=== PATIENT | male | born 1970 | race Caucasian/White ===

== ENCOUNTER 2019-01-02 09:31 | Outpatient (REF) | payer BC, SELFPAY ==
[2019-01-02 12:27] LABS: Anion Gap 11.3 mmol/L (3-11); BUN 12 mg/dL (7-18); CO2 26.7 mmol/L (21.0-32.0); CREATININE 0.99 mg/dL (0.70-1.30); Calcium 9.4 mg/dL (8.5-10.1); Chloride 104 mmol/L (98-107); Cholesterol 255 mg/dL (50-200); Glucose 89 mg/dL (70-100); HDL Cholesterol 89 mg/dL (40-60); LDL CHOLESTEROL 137 mg/dL (<100); Potassium 4.2 mmol/L (3.5-5.1); Sodium 142 mmol/L (136-145); Triglyceride 78 mg/dL (30-150)
== END 2019-01-02 09:51 ==
LOC: NCHCN 09:31
PROVIDERS: PCP Family Medicine; Visit Provider Family Medicine
DX: Z00.00 Encounter for general adult medical examination without abnormal findings (principal); Z13.220 Encounter for screening for lipoid disorders; Z13.228 Encounter for screening for other metabolic disorders
CPT/HCPCS: 80048; 80061; 83721

== ENCOUNTER 2020-04-20 10:01 | Outpatient (REF) | payer OTHER, SELFPAY ==
[2020-04-20 20:10] LABS: HCT 44.8 % (40.0-50.0); HGB 15.3 g/dL (13.5-17.5); MCH 31.5 pg (27.0-33.0); MCHC 34.2 % (32.0-36.0); MCV 92.4 fL (80-95); MPV 10.5 fL (8.0-11.0); Platelet Count 284 10^3/uL (130-400); RBC 4.85 10^6/uL (4.36-5.78); RDW 12.5 % (11.8-14.1); RDW-SD 42.6 fL; WBC 5.77 10^3/uL (4.4-10.8)
[2020-04-20 20:43] LABS: ALT 33 U/L (16-63); AST 19 U/L (15-37); Albumin 4.1 g/dL (3.4-5.0); Alkaline Phosphatase 30 U/L (46-116); Anion Gap 11.7 mmol/L (3-11); BUN 7 mg/dL (7-18); Bilirubin, Total 0.6 mg/dL (0.2-1.0); CO2 25.3 mmol/L (21.0-32.0); CREATININE 0.81 mg/dL (0.70-1.30); Calcium 9.8 mg/dL (8.5-10.1); Chloride 103 mmol/L (98-107); Glucose 99 mg/dL (74-106); Potassium 4.2 mmol/L (3.5-5.1); Sodium 140 mmol/L (136-145); Total Protein 7.2 g/dL (6.4-8.2)
== END 2020-04-20 10:21 ==
LOC: NCHCN 10:01
PROVIDERS: PCP Family Medicine; Visit Provider Family Medicine
DX: I10 Essential (primary) hypertension (principal); F41.1 Generalized anxiety disorder; K21.9 Gastro-esophageal reflux disease without esophagitis
CPT/HCPCS: 80053; 85027

== ENCOUNTER 2020-08-29 03:13 | Outpatient (CLI) | payer OTHER, SELFPAY ==
[2020-08-30 17:32] LABS: COVID-19 RT-PCR UVMMC Result Negative (Negative)
== END 2020-08-29 03:33 ==
PROVIDERS: PCP Family Medicine; Visit Provider Surgery
DX: Z11.59 Encounter for screening for other viral diseases (principal); Z01.818 Encounter for other preprocedural examination
CPT/HCPCS: U0003

== ENCOUNTER 2020-09-01 08:05 | Day surgery (SDC) | payer OTHER, SELFPAY ==
[2020-09-01 08:22] VITALS: BP 139/90; PULSE 71; RESP 16; TEMP 36.6; O2SAT 97
[2020-09-01] MEDS: Lactated Ringers 1,000 ML 80 ML IV (08:55)
--- NOTE | 2020-09-01 10:00 | BOWEL_PTH ---
PATIENT: Hai Chiu LOC: [facility] U#:[id number] AGE/SX: 49/M ROOM: RE09/01/[address]: Flora Martinez : 1970 BED: DIS: 09/01/2020 SPEC #: [id number] RECD: 09/01/20 12:57 STATUS: BRENDA REQ #: [id number] EUGENE: 09/01/20 10:[address]: Flora Martinez DEPT: Surgical Specimen RECD BY: Keila Greer ENTERED: 09/01/20 12:58 SP TYPE: Bowel OTHR DR: Deepthi Jimenez Tissues: 1 - BIOPSY BOWEL 2 - BIOPSY BOWEL 3 - BIOPSY BOWEL Procedures: GROSS AND MICRO LEVEL 4 Comments: [id number]
--- NOTE | 2020-09-01 10:44 | W.PM.DSUDISC ---
Discharge Plan Disposition Patient Disposition: HOME Condition: Good Discharge Details Reason For Visit: colon scope Attending Provider: Flora Martinez Primary Care Provider: Deepthi Jimenez Home Meds and New Rx's Prescriptions: Discontinued bisacodyl [Dulcolax (bisacodyl)] 5 mg tablet,delayed release (DR/EC) 5 mg PO ONCE Qty: 4 RF: 0 polyethylene glycol 3350 17 gram/dose powder 238 g PO ONCE Qty: 238 RF: 0 No Action aspirin 81 MG tablet,delayed release (DR/EC) 81 mg PO DAILY RF: 0 citalopram 20 mg tablet 40 mg PO DAILY RF: 0 dextroamphetamine-amphetamine [Adderall XR] 30 mg capsule,extended release 24hr 30 mg PO DAILY RF: 0 amlodipine 5 mg tablet 5 mg PO DAILY RF: 0 albuterol sulfate [ProAir HFA] 90 mcg/actuation HFA aerosol inhaler 2 puff inhalation Q6H PRNRF: 0 omeprazole 40 mg capsule,delayed release(DR/EC) 40 mg PO DAILY RF: 0 Advair HFA 60 PUFF HFA aerosol inhaler 2 puff Inhalation BID RF: 0 ProAir RespiClick 90 MCG aerosol powdr breath activated 2 puff Inhalation PRN PRNRF: 0 Discharge Instructions Additional Instructions: Findings: x3 small polyps We will send a letter in 2 to 3 weeks time as to what when to repeat the colonoscopy. Most likely will be 3 to 5 years. Few small scattered diverticula. Follow a high-fiber diet. Please call if you develop: fevers >101.5 Nausea or Vomiting Abdominal pain that is not transient DAY SURGERY UNIT POST COLONOSCOPY INSTRUCTIONS 1. Because there will be medication in your system for the next 24 hours, you may feel a little sleepy. Your coordination will be affected. Therefore: a. Do not drive or operate dangerous equipment for 24 hours. b. Do not drink alcohol beverages for 24 hours (not even beer). c. Plan to go home and rest for the day. 2. Generally there are no restrictions on your activity after a day or so has gone by, but you may feel a bit fatigued for a few days. 3 After you arrive home you may have a light meal and return to a normal diet as you can tolerate it without feeling sick to your stomach. 4. After surgery, you may feel pain or discomfort. This should be only transient, but if it persists please contact your doctor. 5. If there are any questions regarding the findings of your procedure, please feel free to contact your doctor. 6. If you are unable to contact your doctor with a problem, contact the hospital at [phone]. 7. Continue all your regular medications unless directed otherwise. I understand the above instructions and have no questions. Signature of Patient or Responsible Adult Escort Date/Time Name of Responsible Adult Escort Signature of Nurse Date/Time DIVERTICULAR DISEASE OVERVIEW ? A diverticulum is a pouch-like structure that can form through points of weakness in the muscular wall of the colon (ie, at points where blood vessels pass through the wall). Diverticulosis affects men and women equally. The risk of diverticular disease increases with age. It occurs throughout the world but is seen more commonly in developed countries. WHAT IS DIVERTICULAR DISEASE? Diverticulosis ? Diverticulosis merely describes the presence of diverticula. Diverticulosis is often found during a test done for other reasons, such as flexible sigmoidoscopy, colonoscopy, or barium enema. Most people with diverticulosis have no symptoms and will remain symptom free for the rest of their lives. A person with diverticulosis may have diverticulitis, or diverticular bleeding. Diverticulitis ? Inflammation of a diverticulum (diverticulitis) occurs when there is thinning and breakdown of the diverticular wall. This may be caused by increased pressure within the colon or by hardened particles of stool, which can become lodged within the diverticulum. The symptoms of diverticulitis depend upon the degree of inflammation present. The most common symptom is pain in the left lower abdomen. Other symptoms can include nausea and vomiting, constipation, diarrhea, and urinary symptoms such as pain or burning when urinating or the frequent need to urinate. Diverticulitis is divided into simple and complicated forms. ?Simple diverticulitis, which accounts for 75 percent of cases, is not associated with complications and typically responds to medical treatment without surgery. ?Complicated diverticulitis occurs in 25 percent of cases and usually requires surgery. Complications associated with diverticulitis can include the following: ?Abscess ? a localized collection of pus ?Fistula ? an abnormal tract between two areas that are not normally connected (eg, bowel and bladder) ?Obstruction ? a blockage of the colon ?Peritonitis ? infection involving the space around the abdominal organ ?Sepsis ? overwhelming body-wide infection that can lead to failure of multiple organs Diverticular bleeding ? Diverticular bleeding occurs when a small artery located within a diverticulum is eroded and bleeds into the colon. Diverticular bleeding usually causes painless bleeding from the rectum. In approximately 50 percent of cases, the person will see maroon or bright red blood with bowel movements. Is bleeding with a bowel movement normal? ? It is not normal to see blood in a bowel movement; this can be a sign of several conditions, most of which are not serious (eg, hemorrhoids) but some of which are serious and require immediate treatment. Anyone who sees blood after a bowel movement should consult with their healthcare provider to determine if further testing or evaluation is needed. DIVERTICULOSIS AND DIVERTICULITIS DIAGNOSIS ? Diverticulosis is often found during tests performed for other reasons. ?Barium enema ? This is an x-ray study that uses barium in an enema to view the outline of the lower intestinal tract. This is an older test and has been largely replaced by computed tomography (CT) scan. ?Flexible sigmoidoscopy ? This is an examination of the inside of the sigmoid colon with a thin, flexible tube that contains a camera. ?Colonoscopy ? This is an examination of the inside of the entire colon. ?CT scan ? A CT scan is often used to diagnose diverticulitis and its complications. If diverticulitis (not just diverticulosis) is suspected, the above three tests should not be used because of the risk of perforation. TREATMENT Diverticulosis ? People with diverticulosis who do not have symptoms do not require treatment. However, most clinicians recommend increasing fiber in the diet, which can help to bulk the stools and possibly prevent the development of new diverticula, diverticulitis, or diverticular bleeding. Fiber is not proven to prevent these conditions in all patients but may help to control recurrent episodes in some. Increase fiber ? Fruits and vegetables are a good source of fiber. Fiber content of packaged foods can be calculated by reading the nutrition label. Seeds and nuts ? Patients with diverticular disease have historically been advised to avoid whole pieces of fiber (such as seeds, corn, and nuts) because of concern that these foods could cause an episode of diverticulitis. However, this belief is completely unproven. We do not suggest that patients with diverticulosis avoid seeds, corn, or nuts. Diverticulitis ? Treatment of diverticulitis depends upon how severe your symptoms are. Home treatment ? If you have mild symptoms of diverticulitis (mild abdominal pain, usually left lower abdomen), you can be treated at home with a clear liquid diet and oral antibiotics. However, if you develop one or more of the following signs or symptoms, you should seek immediate medical attention: ?Temperature >100.1?F (38?C) ?Worsening or severe abdominal pain ?An inability to tolerate fluids Hospital treatment ? If you have moderate to severe symptoms, you may be hospitalized for treatment. During this time, you are not allowed to eat or drink; antibiotics and fluids are given into a vein. If you develop an abscess of the colon, you may require drainage of the abscess (usually performed by placing a drainage tube across the abdominal wall) or by surgically opening the affected area. Surgery ? If you develop a generalized infection in the abdomen (peritonitis), you will usually require an emergency operation. A two-part operation may be necessary in some cases. ?The first operation involves removal of the diseased colon and creation of a colostomy. A colostomy is an opening between the colon and the skin, where a bag is attached to collect waste from the intestine. The lower end of the colon is temporarily sewed closed to allow it to heal. ?Approximately three to six months later, a second operation is performed to reconnect the two parts of the colon and close the opening in the skin. You are then able to empty your bowels through the rectum. Sometimes patients require up to a year to recover from the first operation, depending on how sick they were. In non-emergency situations, the diseased area of the colon can be removed and the two ends of the colon can be reconnected in one operation, without the need for a colostomy. Surgery versus medical therapy ? An operation to remove the diseased area of the colon may be necessary if you do not improve with medical therapy. After an episode of uncomplicated diverticulitis, elective surgery is generally not required as the risk of another attack or requiring emergency surgery is low. However, patients with persistent symptoms attributable to diverticulitis, a history of complicated diverticulitis, or a compromised immune system should be evaluated for possible surgery to prevent another attack. In such patients, another attack has been associated with a higher risk of complications or . Of course, the decision will also depend in part upon your other medical conditions and ability to undergo surgery. In many cases, an elective operation can be performed laparoscopically, using small incisions, rather than the typical vertical (up and down) abdominal incision. Laparoscopic surgery usually allows you to recover more quickly and shortens the hospital stay. After diverticulitis resolves ? After an episode of diverticulitis resolves, if you have not had a recent colonoscopy, the entire length of the colon should be evaluated to determine the extent of disease and to rule out the presence of abnormal lesions such as polyps or cancer. Recommended tests include colonoscopy, barium enema and sigmoidoscopy, or CT colonography. Diverticular bleeding ? Most cases of diverticular bleeding resolve on their own. However, some people will need further testing or treatment to stop bleeding, which may include a colonoscopy, angiography (a treatment that blocks off the bleeding artery), bleeding scan, or surgery. DIVERTICULAR DISEASE PROGNOSIS Diverticulosis ? Over time, diverticulosis may cause no problems or it may cause episodes of bleeding and/or diverticulitis. Approximately 15 to 25 percent of people with diverticulosis will develop diverticulitis, while 5 to 15 percent will develop diverticular bleeding. Diverticulitis ? Approximately 85 percent of people with uncomplicated diverticulitis will respond to medical treatment, while approximately 15 percent of patients will need an operation. After successful treatment for a first attack of diverticulitis, one-third of patients will remain asymptomatic, one-third will have episodic cramps without diverticulitis, and one-third will go on to have a second attack of diverticulitis. The prognosis tends to remain similar following a second attack of diverticulitis. Only 10 percent of people remain symptom-free after a second attack. Subsequent attacks tend to be of similar severity, not increasing in severity as previously believed. High Fiber Diet What is Dietary Fiber? All fiber comes from plants, bushes, trung or trees. Of course, the ones that we eat provide us with fruits, vegetables and grains. There are many different types of fiber but the three that are most important to the health of the body are: Insoluble Fiber This fiber does not dissolve in water, nor is it fermented by the bacteria residing in the colon. Rather, it retains water and in so doing, helps to promote a larger, bulkier and more regular bowel activity. This, in turn, may be important in preventing disorder such as diverticulosis and hemorrhoids, and in sweeping out certain toxins and cancer causing carcinogens. Sources of insoluble fiber are: ? whole grain wheat and other whole grains ? corn bran, including popcorn, unflavored and unsweetened ? nuts and seeds ? potatoes and the skins from most fruits from trees such as apples, bananas and avocados ? many green vegetables such as green beans, zucchini, celery and cauliflower ? some fruit plants such as tomatoes and kiwi Soluble Fiber These fibers are fermented or used by the colon bacteria as a food source or nourishment. When these good bacteria grow and thrive, many health benefits occur in both the colon and the body. Soluble fiber is present in some degree in most edible plant foods, but the ones with the most soluble fiber include: ? legumes such as peas and most beans, including soybeans ? oats, rye and barley ? many fruits such as berries, plums, apples bananas and pears ? certain vegetables such as broccoli and carrots ? most root vegetables ? psyllium husk supplement products Prebiotic Soluble Fiber These are relatively newly discovered soluble plant fibers. The technical name for this fiber is inulin or fructan. When these soluble fibers are fermented by the good colon bacteria, some further significant health benefits have been shown to occur by research in many medical centers. These soluble prebiotic fibers occur in significant amounts in: ? asparagus ? yams ? onions ? garlic ? bananas ? leeks ? agave ? chicory and other root vegetables such as [place] artichokes ? wheat, rye and barley (smaller amounts) Benefits of a High Fiber Diet The health benefits of a high fiber diet, consumed on a regular basis and reaching recommended amounts (below), are now fairly well-defined. There are some additional benefits in the early research stage with the prebiotic soluble fibers. What is now known regarding a high fiber diet include: Bowel Regularity A high fiber diet promotes regularity with a softer, bulkier and regular stool pattern. This decreases the chance of hemorrhoids, diverticulosis and perhaps colon cancer. Cholesterol and Reduced Triglycerides The soluble fibers are the ones that will reduce cholesterol levels when used on a regular basis. Psyllium husk and prebiotic soluble fiber will also reduce cholesterol. They may also reduce the incidence of coronary heart disease. Oats, flax seeds and legumes or beans are the recommended fibers. Colon Polyps and Cancer It is still not certain if a high fiber diet helps prevent colon cancer. Considerable research suggests that this may occur. Certainly it makes sense to increase regularity and so speed the movement of cancer causing carcinogens through the bowel. In addition, reducing a heavy meat diet reduces the bile flow from the liver in a favorable way. This, too, reduces the amount of carcinogens that reach and are manufactured in the colon. Finally, a high fiber diet, including prebiotic soluble fiber, increases the integrity and health of the wall of the colon. The risk of cancer may be reduced. Colon Wall Integrity A high fiber diet changes the bacterial makeup of the colon toward a more favorable balance. For instance, it is known that those people with obesity, diabetes type 2 and inflammatory bowel disease have a predominance of bad bacteria in the colon. This, in turn, may render the bowel wall weak and allow bacteria and, indeed, even toxins to seep through. A high fiber diet with a modest reduction in animal and meat products may return the bacterial makeup to a more positive balance. This, in particular, has been seen when the soluble fiber prebiotics are added to the diet. Blood Sugar Soluble fiber such as in legumes (beans), oats and in prebiotic fibers slows the absorption of blood sugar and so helps regulate the sugar in the blood. Insoluble fiber on a regular basis is associated with reduced risk of type 2 diabetes. Weight Loss High fiber diets are more filling and give a sense of fullness sooner than an animal and meat based diet does. In addition, the soluble prebiotic fibers have been shown to turn off the hunger hormones produced in the wall of the gut and to increase the hormones that give a sense of fullness. Those hormones are made in the wall of the gut. New medical research has shown that the bacterial makeup in the colon in overweight people is abnormal to the extent that they manufacture and absorb almost twice the number of calories through the colon wall as do normals. Prebiotic fibers (below) will help change this hormonal balancein a favorable way. Bacteria and the Function of the Colon The colon finishes the digestive process. Hopefully, the waste products move through in a nice regular manner. Insoluble fibers help this process by retaining water and so producing a bulkier, softer stool, which is easy to pass. The additional role of the colon is to provide a home for an enormous number of micro-organisms, mostly bacteria. Recent research has shown that there are over 1,000 species of bacteria with a total bacterial count ten times the number of cells in the body. These bacteria play a major role in keeping the colon wall itself healthy. In addition, these good bacteria produce a very strong immune system for the body. They significantly increase calcium absorption and bone density. They provide other documented benefits. It is the soluble fibers in the diet that are so effective in stimulating the growth of good colon bacteria. How Much is Enough? The amount of fiber in food is measured in grams. National nutritional authorities recommend the following amounts of dietary fiber daily. Under Age 50 Over Age 50 Men 38 grams 30 grams Women 25 grams 21 grams For a week or so, it is best to tally the amount of fiber you are consuming. Boxed and packaged foods will have the amount of fiber per serving on the nutrition label. Which Fibers and Which Foods are Best? As noted, healthy fiber is only found in plants. The three major categories are whole grains, fruits and vegetables. Whole Grains Wheat, oats, barley, wild or brown rice, amaranth, buckwheat, bulgur, corn, millet, quinoa, rye, sorghum, teff and triticals. By far, wheat, oats and wild or brown rice are most common. Always buy whole grain products. White bread, baked goods and rolls almost always are made from wheat flour. Wheat flour is white because most of the fiber, vitamins and other nutrients have been removed. Try not buy enriched grains. What this means is that simple white flour has had vitamins added to it by the telecommunications linesworker. The word, enriched, implies a good and healthy product. On the contrary, enriched means that most of the fiber has been removed and a few vitamins added. Fruits Fruits come from trees such as apple and pear or from bushes or trung. You should eat a wide variety of fruits, preferably with every meal. In many cases, the skin of a fruit such as apple will contain much of the insoluble fiber while the pulp contains most of the soluble fiber. To the extent possible, buy organic fruits as these will have little or no pesticides. Always wash fruit. Vegetables Eat a wide variety of vegetables. They should be a mainstay of lunch and dinners. Frozen vegetables retain as much nutrition and fiber as fresh vegetables. As with fruit, try to buy organic to reduce any residual pesticide ingestion. Wash fresh vegetables thoroughly. Cruciferous vegetables such as broccoli, [place] sprouts and cauliflower contain certain chemicals such as sulforaphane. This substance has very strong anti-cancer properties and should be eaten frequently. Legumes, Beans, Peas and Soybeans These vegetables have plenty of soluble fiber and should be part of a varied vegetable intake. Beans, in particular, contain a certain type of fiber that may lead to harmless gas or bloating. Nuts and Seeds These are rich sources of fiber and are a good substitute for sweets such as candies and baked sweet goods. While nuts and seeds are rich in fiber, they also contain vegetable fat and so can and do add calories. Read the Labels As noted, fresh and frozen foods are usually better. They have good nutrition and few, if any, chemicals added to them. When buying packaged foods and, in particular grains, look for three things: ? The first word on the label should be whole, such as whole wheat or whole grain. ? Check out the calories and the amount of fiber in a serving. ? How many and what other additives or chemicals are added. Fewer is always better. Do you know what each additive does? Some are added not for the benefit of the hog buyer but rather for manufacturers. These could and do include sugar, artificial flavor, chemicals to prevent oxidation and spoilage, emulsifiers to blend the product. You have to be a adult education manager. Fiber Facts, Nuggets and Pearls ? For breakfast you can easily get the day started well by using a high fiber, whole grain cereal. Check the labels. Add fruit such as blueberries and bananas. If you are an egg eater, use whole wheat or grain toast. Adding wheat germ gives you a good fiber kick. ? Always use whole grain or wheat with rolls and sandwiches. Does your fast food store not have them? Perhaps you look elsewhere. Eating an occasional black tristan or veggie burger provides variety. ? Snacks should consist of fruit and/or nuts. While nuts are loaded with fiber, they are an energy rich food, meaning they have a lot of calories in a small packet. ? Fruit juices should contain pulp. Clear juices such as clear orange, pear or apple juice contain little fiber and have a lot of fructose. Prune juice is usually high in fiber. ? Homemade soups ? adding fresh or frozen vegetables to a chicken or vegetable stock is a good way to start homemade soup. ? Salads ? adding cooked and then chilled vegetables provide great flavoring to almost any salad. Remember, a sewell salad has lots of cooked corn in it. Small slices of apples or oranges and nuts such as chopped walnuts or sliced almonds always adds taste, variety and fiber to almost any salad. ? Fruit ? Try to eat fruit of some type with almost every meal. ? Rethink how you place the various foods on your dinner plate. Reducing the portions of the meat or animal food portion to the side with equal or more portions of vegetables, legumes and fruits portion always allows for more fiber. There was never anything magic about making the meat or animal food portion the main part of the dinner plate. Eating from smaller plates can, over time, trick your mind and senior living habit of using a dinner plate. Again, there is nothing magic in an 11, 12, or 13 inch dinner plate. Fiber Supplements There are a variety of fiber supplements available on the food or pharmacy shelves. Psyllium This soluble plant fiber has been used in [place] for over 2,000 years. It is a soluble fiber with mucilage in it. This acts to retain a lot of water and also is fermented by colon bacteria. When 7 grams a day are used, it does lower cholesterol. Metamucil in various forms is psyllium. Methyl Cellulose All the cellulose products come from finely ground wood chips which are then treated in a variety of ways such as boiling in acids. Methyl cellulose is an insoluble fiber which does dissolve in water. It is also an emulsifier, meaning it blends oils and water. Citrucel is methyl cellulose (MC). MC may not be appropriate for Crohn?s disease or ulcerative colitis as several medical studies have shown that certain emulsifiers dissolve the mucous lining of the colon in animals prone to Crohn?s disease. This then allows bacteria to invade the underlying tissue. Inulin Inulin is a soluble prebiotic fiber found in many foods and which are fermented mostly in the left side of the colon. It is available in a supplement as generic inulin and in Fiber Choice. Oligofructose FOS These are also prebiotic fibers. They are fermented very quickly in the right side of the colon. Prebiotin This product is a combination of oligofructose, which feeds the bacteria in the right side of the colon and inulin, which does the same in the left side of the colon. There seems to be a benefit for this particular formula based on medical research. Prebiotic Soluble Fiber These may be the healthiest of all the soluble fibers. They grow in many plants and have had a great deal of research done on them in the last 10-15 years. These fibers are found in asparagus, yams and other root vegetables such as chicory, garlic, onion, leeks and in smaller amounts in wheat. This research has shown the following: ? Increase in good and decrease in bad colon bacteria ? Increase calcium absorption and enhanced bone mass ? Enhanced immune system ? Appetite and weight control by changing the hormone appetite signals to the brain ? May decrease colon cancer incidence ? Reduce or correct a leaky colon Eating a wide variety of plant food up to the recommended amount will likely give you enough prebiotic fiber. Supplements such as Prebiotin can be added to the diet. Short Chain Fatty Acids (SCFA) Some rather remarkable research findings have shown that one of the benefits of ingesting a lot of soluble fiber, in particular the prebiotic ones, results in larger amounts of SCFAs in the colon. These SCFAs are made by the good bacteria in the colon such as Bifidobacter and Lactobacillus. These small molecules have been shown to do the following: ? Enhance the health and integrity of the colon wall ? Provide nourishment for the cells that actually line the colon ? Increases the acidity of the colon which is a very real health benefit ? Stabilize blood sugar for diabetics ? Reduce blood cholesterol and triglyceride ? Significantly enhance immunity ? May be a benefit for Crohn?s disease and ulcerative colitis patients Fiber and Gas Everyone has intestinal gas and that is a good thing. It means that bacteria, hopefully the good ones, are thriving. The normal amount of flatus passed each day depends on sex and what is eaten. The normal number of flatus is 10-20 times a day. When the bacteria that make intestinal gases are growing, it also means that other good bacteria are using the same fibers to grow and produce multiple health benefits, including the production of healthy short-chain fatty acids. These substances are produced quietly in the colon and produce many health-related outcomes. Soluble fiber should always be used in a gradual manner. If too much is consumed at any one time, then excess, but harmless, intestinal gas can occur. People with irritable bowel syndrome are particularly prone to bloating and mild cramping. In this instance, soluble fiber in the diet or supplement should be used in small doses and increased gradually. Finally, prebiotic fibers tend to cause the production of short-chain fatty acids which acidify the colon. This, in turn, reduces or stops the growth of bacteria that make the smelly hydrogen sulfide gases that produce noxious flatus. People who consume many vegetables with prebiotics or take a prebiotic fiber supplement often have non-odoriferous flatus. Fiber and Irritable Bowel Syndrome Irritable bowel syndrome (IBS) is one of the most common disorders of the lower digestive tract. The symptoms of IBS can be quite varied. They can be a mix of several symptoms such as constipation, diarrhea, crampy abdominal discomfort, bloating and gas. An attack of IBS can be triggered by emotional tension and anxiety, poor dietary habits and certain medications. It is now known that infections in the intestine can lead to long-term IBS symptoms. Increased amounts of fiber in the diet can help relieve the symptoms of irritable bowel syndrome by producing soft, bulky stools. This helps to normalize the time it takes for the stool to pass through the colon. Recent medical research with newer techniques has shown some surprising and dramatic findings for IBS patients. Specifically, there is a very significant and abnormal shift of bacteria from those that provide health benefits to those bad bacteria that we really do not want in the gut. The technical name for this bad group of bacteria is called Firmicutes. Along with this abnormal bacterial collection, there is a smoldering low-grade inflammation in the gut wall that may contribute to symptoms. The goal for IBS patients should be to gradually increase the soluble dietary fibers in the diet so as to promote the growth of good bacteria and so suppress the bad ones along with the associated inflammation. IBS patients need to be careful of the amount of soluble fiber they consume. The reason for this is that, while the good colon bacteria thrive on these fibers and produce health benefits, other gas-forming bacteria may generate excessive but harmless gas and subsequent bloating. Thus, soluble plant fibers or a dietary prebiotic supplement should be taken in small initial doses and then gradually increased to tolerance. Fiber and Colon Polyps/Cancer Colon cancer is a major health problem. This disease is most common in Western cultures. It is not seen very often in rural cultures where the diet is mostly plant based. Usually, colon cancer starts out as a colon polyp, a benign mushroom-shaped growth. In time it grows, and in some people it becomes cancerous. Colon cancer is usually always curable if polyps are removed when found or if surgery is performed at an early stage. It is now known that people can inherit the risk of developing colon cancer, but diet is important, too. As noted, there is a very low rate of colon cancer in residents of countries where grains are unprocessed and retain their fiber. It seems that in the Western world, cancer-containing agents (carcinogens) remain in contact with the colon wall for a longer time and in higher concentrations. So, a large bulky stool may act to dilute these carcinogens by moving them through the bowel more quickly. Less carcinogenic exposure to the colon may mean fewer colon polyps and less cancer. A very current review of the entire world?s literature on the effect of fiber on colon polyps and cancer prevention has shown rather clearly that for every 10 grams of fiber added to the diet, there is a 10% reduction in incidence of colon cancer. So the recommended 30 gram fiber diet would result in a 30% less chance of getting these tumors. There are also substances produced in the colon by the good bacteria that seem to retard certain pre-cancer factors from developing. They are called short-chain fatty acids (SCFA). See above for description of SCFAs. A high fiber diet increases these substances. So, the combination of dietary fiber and the production of short-chain fatty acids have a clear health benefit. Fiber and Diverticulosis Prolonged, vigorous contraction of the colon over a long period of time may result in diverticulosis. This increased pressure causes small and, eventually, larger ballooning pockets to form. These pockets by themselves cause no problem. However, sometimes they become infected (diverticulitis) or even break open (perforate) causing infection or inflammation within the abdomen (peritonitis). A high fiber diet increases the bulk in the stool and thereby reduces the pressure within the colon. By so doing, the formation of pockets may be reduced or possibly even stopped. In the past, many physicians were fearful that seeds as in tomatoes, nuts or berries were harmful and could get inside these pockets and rattle around, causing damage. We now know that this has never been the case and that these foods contain lots of fiber and are actually beneficial for diverticulosis patients. Certain bulking agents such as psyllium are traditional types of bulk producing supplements. Psyllium is a soluble fiber. Combining it with insoluble fiber as in wheat bran or corn bran (no gluten) can enhance this bulking effect even more. A product containing a prebiotic, psyllium and wheat bran is probably a very good combination for bowel regularity. Prebiotin Regularity/Diverticulosis is one such product. Activity:: No lifting over 20 pounds or strenuous activity x3 days. Diet:: Small light meals [id number] DS: Diagnosis Discharge Diagnosis (1) Adenomatous polyps: Status: Acute (2) Diverticula of colon: Status: Acute
--- NOTE | 2020-09-01 10:50 | W.COLOREPORT ---
Date of service: 09/01/20 Time of Service: 10:50 Colonoscopy Report Prep: Miralax/Dulcolax Retraction Time: 15 mins Procedure Description: After informed consent was obtained the patient was taken to the procedure room and placed in a left decubitous position. Monitors were applied and a time out was done. The patients name, date of , procedure, allergies to medications and metal in their body was reviewed. The patient was then sedated. Once sedated and comfortable a rectal exam was done. External exam shows: ext tag x 1. Internal exam revealed a normal sphincter tone and no palpable masses. The prostate nl. The scope was then introduced and retrofelexed. internal hemorrhoids were identified. The scope was then advanced to the cecum w/out difficulty. The TI and appendiceal orifice were identified. The prep was good. The scope was then slowly retracted over 15 minutes back into the rectum. He has a few small and very scattered diverticuli that started in the sigmoid colon do extend all the way over to the transverse colon. There is no signs of active bleeding or infection. The mucosa is pink and healthy. He has 3 polyps are removed today one at 20 cm less than 5 mm flat polyp with a cold but biting forcep. 1 small polyp at 80 cm it is probably 0.75 in size it was raised but not on a true stalk. This is removed with a hot snare. There is another polyp at 50 cm that was small -may be 0.6 cm and flat, this was removed with a hot snare as well. All specimens are retrieved. No bleeding is noted. The scope was removed and the patient was woken up and taken back to Same day surgery in stable condition. The patient tolerated the procedure well and there were no immediate complications. Follow up: The patient should follow up in 3-5 years unless they develop changes in bowel habits or other new gastrointestinal complaints.
[2020-09-01 11:10] VITALS: BP 126/82; PULSE 74; RESP 18; TEMP 37; O2SAT 100
== END 2020-09-01 11:33 | disposition home or self-care (01) ==
PROVIDERS: PCP Family Medicine; Visit Provider Surgery
PROC: 0DJD8ZZ Inspection of Lower Intestinal Tract, Via Natural or Artificial Opening Endoscopic (ICD-10-PCS; CPT 45378; principal; 2020-09-01 09:30)
DX: Z12.11 Encounter for screening for malignant neoplasm of colon (principal); Z87.19 Personal history of other diseases of the digestive system; Z86.010 Personal history of colon polyps; D12.3 Benign neoplasm of transverse colon; K57.30 Diverticulosis of large intestine without perforation or abscess without bleeding; K21.9 Gastro-esophageal reflux disease without esophagitis; Z80.0 Family history of malignant neoplasm of digestive organs; Z83.71 Family history of colonic polyps
CPT/HCPCS: 45385; 45380; 88305

== ENCOUNTER 2020-12-01 09:44 | Outpatient (CLI) | payer OTHER, SELFPAY ==
--- NOTE | 2020-12-01 06:00 | DI.RAD_ITS ---
EXAM: XR PAIN CLINIC CERVICAL SP 2V CLINICAL HISTORY: Dx: Cervical Radiculopathy TECHNIQUE: 2D and realtime digital imaging was performed. CONTRAST MATERIAL: None. COMPARISON: No exams were available for comparison FINDINGS: Fluoroscopy was provided for cervical level pain management therapy. See see general report for deta ils. Fluoro time: 31.8 seconds Cumulative dose: 3.46 mGy IMPRESSION:
[2020-12-01 09:59] VITALS: BP 121/77; PULSE 71; RESP 17; TEMP 37; O2SAT 98
[2020-12-01 10:35] VITALS: BP 121/78; PULSE 78; RESP 13; O2SAT 100
--- NOTE | 2020-12-01 10:40 | PDOC.PAIN_ITS ---
Pain Clinic Procedure Note Procedure Note Procedure Note: Date of service: December 01, 2020 CERVICAL EPIDURAL STEROID WITH CATHETER INJECTION PROCEDURE NOTE COMMENTS: He has had this procedure 3 times in the past. Twice in 2014 with Dexamethasone in which he received 9 months of relief and then very little relief and one time in 2018 with the use of a catheter and advancement up to the C5 level and Depomedrol in which he received >2 years relief. We discussed the pros and cons on both techniques and decided on the catheter technique with Depomedrol. He wanted to try this procedure without the use of IV sedation. DX: Cervical radiculopathy ELENA BEAULIEU has been referred to the [facility] for cervical epidural steroid injection. Patient was greeted by the nurse who verified patients name and . Patient was then taken to the fluoroscopy suite. Patient was interviewed and the medical record reviewed. There were no medical, pharmacologic, radiographic, or other structural contraindications to attempting fluoroscopically guided cervical epidural steroid injection. Risks and expected side effects as well as potential benefits of the procedure were reviewed and voiced concerns addressed. The patient consent form was signed and witnessed. Standard time-out procedure was performed. Patient was placed in the prone position on the fluoroscopy table and automated blood pressure cuff and pulse oximeter applied. The skin entry point for enteri ng/approaching the epidural space at C7-T1and marked. Following thorough chlorhexadine preparation of the skin and draping and 1% lidocaine infiltration of the skin entry point and subcutaneous tissues, a 17 gauge Touhy needle was placed under fluoroscopic guidance and with loss of resistance technique into the epidural space. Needle tip placement and depth were aided and confirmed by fluoroscopy. There was no paresthesia or return of blood or CSF through the needle. An Arrow cath was thread to the C5 level and 1 cc's of Omnipaque 240 was injected with clear epidural spread confirmed with fluoroscopy. 80mg depomedrol was injected and this was flushed with 1 cc of perservative-free normal saline. There was not any unusual discomfort expressed. The needle was removed without difficulty. Vital signs were stable throughout the procedure and were as recorded in nursing records. Follow up plans and appointments were discussed.Post procedure instruction was given as documented in nursing records and having met discharge criteria and was discharged from the [facility]. COMMENTS: If this procedure is helpful, it can be completed up to 3 times per 12 months. Basim Gutierrez DO, MPH Pain Management
[2020-12-01] MEDS: Omnipaque 240 MG/ML 50 ML BTL IJ (10:46)
[2020-12-01] MEDS: methylPREDNISolone ACETATE 80 MG/ML VIAL IJ (10:47)
== END 2020-12-01 09:45 | disposition home or self-care (01) ==
LOC: PC 09:44
PROVIDERS: PCP Family Medicine; Visit Provider Preventive Medicine Occupational Medicine
DX: M54.12 Radiculopathy, cervical region (principal)
CPT/HCPCS: 62321; 72040; J1040; Q9967

== ENCOUNTER 2021-03-17 02:15 | Outpatient (CLI) | payer OTHER, SELFPAY ==
[2021-03-17 10:01] LABS: Source Nasal/Nares
[2021-03-17 15:53] LABS: COVID-19 PCR Negative (Negative)
== END 2021-03-17 02:16 | disposition home or self-care (01) ==
LOC: LBO 02:16
PROVIDERS: PCP Family Medicine; Visit Provider Surgery
DX: Z20.822 Contact with and (suspected) exposure to COVID-19 (principal); Z01.818 Encounter for other preprocedural examination
CPT/HCPCS: 87635

== ENCOUNTER 2021-03-21 06:17 | Day surgery (SDC) | payer OTHER, SELFPAY ==
--- NOTE | 2021-03-20 21:38 | W.PM.HP.N ---
Date of service: 03/21/21 Time of Service: 07:41 Assessment and Plan Assessment and plan (1) Reducible right inguinal hernia: Status: Acute Assessment and plan: I discussed the nature of inguinal hernias with the pt . I discussed the surgery in detail and the complications related to the surgery and the anesthesia. Pt. understands this, all questions were answered to the patient satisfaction and they signed the consent for surgery. Patient was given an educational booklet. Patient has a large right inguinal hernia and desires repair. He has had a previous left hydrocele repair and is very difficult because of scar tissue to do a accurate exam. I think he would best be served by doing a laparoscopic repair. Then we can check the left side his same time as the right side. This would need to be done in conjunction with Kerrie she has more experience and expertise in this area than I. There is a chance that because of the previous scar tissue, that we cannot do the left side laparoscopically and it would need to be done open, if there truly is a hernia present. We discussed doing a block with anesthesia. I strongly encouraged him to have this done. This will significantly control the postop pain in the first 72 hours. We discussed hernia repair and doing the repair with mesh. We discussed what he could expect during surgery, and the recovery period and postop expectations going forward. We discussed the risks and benefits of mesh. I do feel benefits outweigh the risks and ensure that he has a good longstanding repair. Risks of the surgery include but are not limited to: Bleeding/infection/pneumonia/damage to blood vessels or bladder or bowels/blood clots or PE/chronic pain/urinary retention/chronic numbness/reoccurrence/reaction to mesh requiring removal/damage to testicle or sterility/complications of anesthesia. The pt will have a pre-Op PE with his/her PCP to ensure fitness for anesthesia. The procedure will be done with abx and under sterile conditions. The pt requires a ride home from surgery and someone to stay with the pt for 24 hrs after anesthesia. No lifting over 5 pounds for 2 weeks after surgery. Pt desires no narcotics postOp. We will work w/ him to accomlish this goal. I strongly encourage him to have the block done. (2) S/P repair of hydrocele: Status: Acute History of Present Illness Narrative: Pt notes the hernia pain started the end of the summer last year. He was doing yard work and did some lifting and since than has been having pain. +bulge. He has noticed it takes longer for him to urinate- mild s/s. Obvious Right inguinal hernia. Pt is healthy and w/ in IBW. He has well defined anatomy. CE- in 2019 (minor diveritcula & polyps. + family Hx CRC) non smoker He had a hydroelele repair on the left side in the past.at [facility] [place]. the surgeon said is was huge and he had lots of scar tissue. L sided exam is irregular- but has similar bulging to the right. I do not feel anything the hernia exam on the left side. But this may be because of scar tissue that I cannot feel anything. Review of Systems All systems reviewed & are unremarkable except as noted in HPI and below PFSH Medical History Adenomatous colon polyp (~2016) Adenomatous polyps Alcohol abuse Allergic rhinitis Anxiety Asthma Attention deficit disorder Back pain Cervical radiculopathy Chronic low back pain Congenital duplication cyst of esophagus Depression Diverticula of colon Erectile dysfunction Esophageal duplication cyst Family history of colon cancer per referral note, both sides of family, 2 grandparents and perhaps some aunts, maternal grandfather was young, under the age of 50 at time of diagnosis GERD (gastroesophageal reflux disease) History of palpitations Pt. states in his 20's had palpatations and had it worked up and nothing ever came of it Hypertension Inguinal hernia Obesity Seborrheic dermatitis of scalp Tubular adenoma (~08/2020) Tubulovillous adenoma (~08/2020) Surgical History Colonoscopy - MAC (02/08/17) EGD - IV Sedation EGD - MAC (07/30/17) History of colonoscopy (~09/01/20) History of hydrocelectomy Incision & Drainage, Abscess or Hematoma thrombosed hemorrhoid Social History Smoking/Tobacco Use Status: Never Smoking risk assessment performed?: Yes Alcohol Intake: former Year quit: 2019 Details: acamprostate Drug use: Occasionally Substance use type: marijuana Details: Last marijuana use was months ago per patient. current occupation: computer programming Current gender identity: male Special avelina needs: No Do you feel safe at home: Yes Do you feel safe in your relationship?: Yes Meds Allergies and Home Medications Allergies Allergy/AdvReac Type Severity Reaction Status Date / Time No Known Allergies Allergy Verified 03/21/21 06:33 Home Medications Medication Instructions Recorded Confirmed Type aspirin 81 mg PO DAILY tab 07/17/17 03/15/21 History albuterol sulfate 90 mcg/actuation 2 puff INHALATION Q6H PRN 07/14/20 03/21/21 History aerosol inhaler amlodipine 5 mg tablet 5 mg PO DAILY 07/14/20 03/21/21 History dextroamphetamine-amphetamine ER 30 mg PO DAILY 07/14/20 03/21/21 History 30 mg 24hr capsule,extend release ketoconazole 1 applic TOPICAL PER PROTOCOL 10/07/20 03/15/21 History omeprazole 40 mg PO DAILY 10/07/20 03/21/21 History selenium sulfide 1 applic TOPICAL UNKNOWN 10/07/20 03/15/21 History vardenafil [Levitra] 20 mg PO DAILY PRN 10/07/20 03/21/21 History citalopram 40 mg tablet 40 mg PO DAILY 01/05/21 03/21/21 History Exam Const General: cooperative, healthy appearing, comfortable, no acute distress, well developed and well groomed Nutritional Appearance: average body habitus and well nourished Orientation: alert, awake and oriented x3 HENMT Head: normal to inspection, normocephalic and atraumatic Ears: hearing grossly normal bilaterally and external ears normal General nose exam: external nose normal Face and sinus: normal facial exam and sinuses nontender Mouth: oral mucosae normal, lip normal, tongue normal and moist mucous membranes Teeth and gingiva: dentition normal Eyes General: appearance normal, both eyes and all related structures Conjunctivae: conjunctivae normal Sclera: sclerae normal Pupils: PERRL Neck Neck: normal visual inspection and full ROM Chest Chest: normal inspection of the chest Resp Effort & Inspection: normal respiratory effort, able to speak in complete sentences, no cough, no nasal flaring, not tachypneic and no use of accessory muscles Auscultation: clear to auscultation bilaterally, no rales, no rhonchi and no wheezes Cardio Jugular venous pressure: no JVD Rate: regular rate Rhythm: regular rhythm GI Inspection: normal to inspection, no edema and non-distended Palpation: soft, no masses, nontender and No ascites Auscultation: normal bowel sounds Other: Right inguinal hernia- reducible. L: scarring on L scrotum from prior hydrocele repair Male General Exam: Yes normal external exam and Yes hernia Skin General skin exam: no rashes or lesions noted Trauma: no lacerations or abrasions Neuro General: patient alert, patient oriented x3, oriented, gait normal, moves all extremities, no focal motor deficits and CN's II-XI intact bilaterally Cognition: normal cognition Speech: speech normal Gait: normal gait Motor: muscle tone normal throughout Extrem General: normal to inspection, full ROM and no clubbing, cyanosis or edema Psych Appearance: grossly normal and well kempt Mental Status: mental status grossly normal Speech and Movement: speech and movement normal Affect: normal affect
--- NOTE | 2021-03-20 21:56 | ROE_ITS ---
Date of service: 03/21/21 Time of Service: 10:00 Operative Note Operative Note DATE OF PROCEDURE: 03/21/21 PRE-OP DIAGNOSIS: right inguinal henria/possible left POST-OP DIAGNOSIS: other (right direct hernia/left cord lipoma) PROCEDURE: laparoscopic bilateral inguinal hernia with mesh ANESTHESIA TYPE: Local By Surgeon, General LMA/ETT and Primary Nerve Block Refer to Anesthesia Record ESTIMATED BLOOD LOSS: 10 PATHOLOGY: none sent COMPLICATIONS: None Patient was transported to: PACU Patient's condition: stable Implants: Bilateral preperitoneal mesh. Please see RN notes for lot numbers Procedure Description: PROCEDURE PERFORMED: Laparoscopic preperitoneal bilateral inguinal hernia repair with placement of mesh. OPERATIVE FINDINGS: A moderate sized indirect right inguinal hernia, also a moderate sized lipoma of the cord on the left w/ out any hernia. No direct or femoral hernias noted. DESCRIPTION OF PROCEDURE: The patient was placed on the operating table in the supine position. After suitable general anesthesia was obtained, a Gallardo catheter was placed, and the abdomen was prepped and draped in the usual sterile manner. A transverse infraumbilical incision was made and carried down through the skin and subcutaneous tissue with a scalpel. Bleeding points were controlled with electrocautery device. The right anterior rectus fascia sheath was transversely incised. The rectus muscle was dissected laterally. The dissected lumen was placed down to the pubic tubercle area and noted to be in good position laparoscopically. This was then inflated to 40 puffs of air, creating a preperitoneal space. The dissecting balloon was removed and a structured balloon was placed in the same plane, inflated and locked in place. A pneumopreperitoneum was established. The patient was placed in a Trendelenburg position. Next, 5 mm ports were placed in the lower midline under direct visualization, after skin incisions were made. Blunt and sharp dissection revealed the above findings. The right side is attended to first. The hernia sac was easily identified and was well defined. It was dissected off the cord anteromedially. It was an indirect sac. It was taken back down and reduced into the peritoneal cavity. Laterally, the cord structures were isolated. A small sized lipoma of the cord was reduced from the canal. No indirect sac was noted on skeletonization of the cord structures. The left side is attended to next. He does have a large lipoma on the cord. This is dissected off of the cord structures. The cord is interrogated. There does not appear to be any sac or a direct hernia on the left side. It was elected to place mesh on the side as well. A piece of BARD 3D mesh was then placed into preperitoneal space, bilaterally. This was placed over the spermatic cord, forming a new internal ring with the inferior flap overlapping the superior flap laterally. A 5 mm tack was then used , the tacks to stay as superior as possible, tacking the overlying flaps of mesh and then medially along the anterior abdominal wall, and then along the pubic area and the ileopubic tract area to keep it in place over the direct defect. The mesh was noted to lay quite nice and flat along the abdominal wall. The pre-peritoneum was desufflated under direct visualization. All ports were then removed. The anterior rectus fascia was closed with a running heavy Vicryl suture. The abdomen was closed with 3-0 Vicryl subcutaneous and 4-0 Vicryl subcuticular skin closure and SkinAfix. The Gallardo catheter was removed, and the both testicle were noted to be in the appropriate hemiscrotum. The patient tolerated the procedure well and was taken back to the recovery room with stable vital signs
[2021-03-21] VITALS (7 sets, daily range): BP systolic 107–130; BP diastolic 83–92; PULSE 58–67; RESP 12–16; TEMP 36.3–36.6; O2SAT 95–99; BMI 26.6
[2021-03-21] MEDS: Gabapentin 300 MG CAP PO (06:23)
[2021-03-21] MEDS: Acetaminophen 500 MG TAB 1000 MG PO (06:23)
[2021-03-21] MEDS: Lactated Ringers 1,000 ML 80 ML IV (06:51)
--- NOTE | 2021-03-21 07:24 | W.ANESPRE ---
General Info Date of Service Date Performed: 03/21/21 Height: 6 ft 1 in Weight: 91.6 kg Body Mass Index (BMI): 26.6 Surgical Procedure: Operation Date: 03/21/21 07:55 Proposed Procedures Side Surgeon p Hernia Inguinal Laparoscopic, possible open Flora Martinez, Meds Allergies and Home Medications Allergies Allergy/AdvReac Type Severity Reaction Status Date / Time No Known Allergies Allergy Verified 03/21/21 06:33 Home Medication Medication Instructions Recorded aspirin 81 mg PO DAILY tab 07/17/17 albuterol sulfate 90 mcg/actuation 2 puff INHALATION Q6H PRN 07/14/20 aerosol inhaler amlodipine 5 mg tablet 5 mg PO DAILY 07/14/20 dextroamphetamine-amphetamine ER 30 mg PO DAILY 07/14/20 30 mg 24hr capsule,extend release ketoconazole 1 applic TOPICAL PER PROTOCOL 10/07/20 omeprazole 40 mg PO DAILY 10/07/20 selenium sulfide 1 applic TOPICAL UNKNOWN 10/07/20 vardenafil [Levitra] 20 mg PO DAILY PRN 10/07/20 citalopram 40 mg tablet 40 mg PO DAILY 01/05/21 Current Visit Medications: Current Medications Generic Name Dose Route Start Last Admin Trade Name Freq PRN Reason Stop Dose Admin Acetaminophen 1,000 mg 03/21/21 06:00 03/21/21 06:23 Acetaminophen 500 Mg Tab PO 03/21/21 16:00 1,000 mg PREOP LION Administration Gabapentin 300 mg 03/21/21 06:00 03/21/21 06:23 Gabapentin 300 Mg Cap PO 03/21/21 16:00 300 mg PREOP LION Administration Ringer's Solution 1,000 mls @ 80 mls/hr 03/21/21 06:00 03/21/21 06:51 IV 04/16/21 23:59 80 mls/hr INFUSION LION Administration Cefazolin Sodium/Dextrose 2 gm in 50 mls @ 100 mls/hr 03/21/21 06:00 Ancef Duplex IVPB 03/21/21 16:00 PREOP LION Ondansetron HCl 4 mg/ Sodium 52 mls @ 200 mls/hr 03/20/21 21:55 Chloride IVPB Q6H PRN PRN IV Miscellaneous Supplies 1 each 03/21/21 06:00 Iv Access IV 04/16/21 23:59 DIRECTED LINO Sodium Chloride 0 ml 03/21/21 06:00 Normal Saline Flush 10 Ml Syr IV 04/16/21 23:59 PRN PRN Sodium Chloride 0 ml 03/21/21 06:00 Normal Saline 10 Ml Vial IJ 04/16/21 23:59 DIRECTED PRN Sterile Water 0 ml 03/21/21 06:00 Water,Injection,Sterile 10 Ml Vial IJ 04/16/21 23:59 DIRECTED PRN PFSH Active Problems Active Problems: Problem Status Onset Code Hemorrhoids without complication K64.9 Family history of cancer of GI tract Z80.0 Cervical radiculitis M54.12 Reducible right inguinal hernia K40.90 S/P repair of hydrocele Z98.890, Z87.438 Diverticula of colon K57.30 Adenomatous polyps D36.9 Medical History Medical History Adenomatous colon polyp (~2016) Adenomatous polyps Alcohol abuse Allergic rhinitis Anxiety Asthma Attention deficit disorder Back pain Cervical radiculopathy Chronic low back pain Congenital duplication cyst of esophagus Depression Diverticula of colon Erectile dysfunction Esophageal duplication cyst Family history of colon cancer per referral note, both sides of family, 2 grandparents and perhaps some aunts, maternal grandfather was young, under the age of 50 at time of diagnosis GERD (gastroesophageal reflux disease) History of palpitations Pt. states in his 20's had palpatations and had it worked up and nothing ever came of it Hypertension Inguinal hernia Obesity Seborrheic dermatitis of scalp Tubular adenoma (~08/2020) Tubulovillous adenoma (~08/2020) Surgical History Surgical History Colonoscopy - MAC (02/08/17) EGD - IV Sedation EGD - MAC (07/30/17) History of colonoscopy (~09/01/20) History of hydrocelectomy Incision & Drainage, Abscess or Hematoma thrombosed hemorrhoid Tobacco Smoking/Tobacco Use Status: Never Alcohol Alcohol Intake: former Year quit: 2019 Details: acamprostate Substance Use Substance use: Occasionally Substance use type: marijuana Details: Last marijuana use was months ago per patient. Vital Signs and Lab Results Vital Signs Most Recent Vital Signs in EMR: Most Recent Vital Signs Temp Pulse Resp BP Pulse Ox 36.5 C 64 16 123/92 H 96 03/21/21 06:19 03/21/21 06:19 03/21/21 06:19 03/21/21 06:19 03/21/21 06:19 Lab Results Blood Type / Crossmatch: No Data to Display Complete Blood Count: No Data to Display Complete Metabolic Panel: No Data to Display Liver Function Panel: No Data to Display Coagulation Panel: No Data to Display Cardiac Panel: No Data to Display Arterial Blood Gas: No Data to Display Venous Blood Gas: No Data to Display Pancreas Panel: No Data to Display Thyroid Panel: No Data to Display Infectious Disease: Coronavirus (COVID-19)(PCR) Negative (Negative) 03/17/21 08:41 03/17/21 Coronavirus 2019 Source Nasal/Nares 03/17/21 08:41 03/17/21 Blood Cultures: No Data to Display Toxicology Panel: No Data to Display Anesthesia Assessment and Plan Anesthesia History Personal History: No History of Anesthesia Complications Family History: No Family History of Anesthesia Complications Exercise Tolerance Exercise Tolerance: Metabolic Equivalents>4 Pertinent Negatives Pertinent Negatives: No Symptoms of GERD (On meds well cont), No Major Cardiovascular Symptoms or Complaints and No Major Pulmonary Symptoms or Complaints Cardiac & Pulmonary Exam Cardiac Exam: Normal S1/S2 Heart Sounds Pulmonary Exam: Clear Bilateral Breath Sounds Airway Exam Known Difficult Airway: No Mallampati Class: 1 Mouth Opening: Normal (> 3cm) Thyromental Distance: Greater than 3 cm Neck Range of Motion: Full ROM Neck Circumference: Normal Teeth Condition: Normal Dentition ASA Classification ASA Score: ASA 2 Emergency Case?: No NPO Status NPO Status: NPO Clears >2 hours, Solids >8 hours Anesthesia Plan Resuscitation Status: Full Code Anesthesia Technique: General Anesthesia Airway Planned: LMA Pain Management: Surgeon and patient request nerve block Monitors Used: Standard Monitors
--- NOTE | 2021-03-21 07:33 | W.PM.OP ---
Date of service: 03/21/21 Operative Note Operative Note DATE OF PROCEDURE: 03/21/21 PRE-OP DIAGNOSIS: Bilateral inguinal hernias POST-OP DIAGNOSIS: same PROCEDURE: Laparoscopic bilateral inguinal hernia repair with mesh ANESTHESIA TYPE: Local By Surgeon and General LMA/ETT Refer to Anesthesia Record PATHOLOGY: none sent COMPLICATIONS: None Patient was transported to: PACU Patient's condition: stable Procedure Description: After informed consent was obtained the patient was taken to the OR and placed in a supine position. He was then placed under general anesthesia and an LMA was placed. A timeout was done, and the patient's name, date of , allergies to medications, DVT prophylaxis, antibiotic given, the post procedure were all reviewed. Fire risk was assessed. Next a Gallardo catheter was placed in a standard sterile surgical fashion. At this point the abdomen was prepped and draped in a sterile surgical fashion. Quarter percent bupivacaine mixed 50-50 with Exparel was then injected just underneath the umbilicus. A 12 mm incision was made and dissection was taken down through the subcutaneous tissue to the fascia. The fascia was opened just to the right of midline. An S retractor was placed and the rectus muscle was then retracted. And then swept the muscle away from the peritoneum. The balloon dissector was then inserted all the way down to the pubic symphysis. The balloon was inflated until both inguinal areas were dissected. The balloon was removed and the preperitoneal space was insufflated. Once insufflated the camera was placed. 2 more ports were placed one just above the pubic symphysis which was 5 mm in size and another midway between the umbilicus and the pubic symphysis. This was also a 5 mm port. Next the right inguinal area was gently dissected making sure to pull the peritoneum down. The cord structures were identified. No fatty tissue was identified on the cord structures. There was a small hernia sac which was reduced away from the cord structures. Next I made sure that the peritoneum was down all the way up to the iliac crest. The pubic symphysis was also cleared for good visualization. Next the left inguinal area was gently dissected in the same way. First the peritoneum was brought down away from the cord structures and away from the pubic symphysis. The cord structures were identified and a sac was noted. The hernia sac again was gently dissected away from the cord structures and reduced. No cord lipoma was identified. Once there was a good space created both on the right and left for the mesh a 3D left mesh was placed into the peritoneum through the 12 mm port. It was secured at the lacunar ligament and just above the anterior superior iliac spine. There was good coverage medially. I made sure that the peritoneum was down below the mesh edge. Next the right 3D mesh was placed into the peritoneum. It was again secured at the lacunar ligament and just above the anterior superior iliac spine. There was good overlap at the pubic symphysis of both meshes. Again I made sure that the peritoneum and the hernia sac were below the edge of the mesh. At this point the 5 mm ports were removed. Lastly the camera was removed and the 12 mm port at the umbilicus. The fascia at the umbilicus was closed with a 0 Vicryl UR 6 figure of 8 suture. The skin of all 3 incisions were closed with 4-0 Vicryl. The skin was cleaned and dried and skin affix was applied. Sponge instrument needle counts were correct. The patient was woken up, the LMA was removed and he was taken to recovery in stable condition. There were no immediate complications.
--- NOTE | 2021-03-21 07:35 | W.PM.DSUDISC ---
Discharge Plan Disposition Patient Disposition: HOME Condition: Good Discharge Details Reason For Visit: bilateral inguinal hernia repair with mesh Attending Provider: Flora Martinez Primary Care Provider: Deepthi Jimenez Home Meds and New Rx's Prescriptions: Continued ketoconazole 2 % Shampoo 1 applic TOPICAL PER PROTOCOL RF: 0 omeprazole 40 mg Capsule,Delayed Release(Dr/Ec) 40 mg PO DAILY RF: 0 vardenafil [Levitra] 20 mg Tablet 20 mg PO DAILY PRNRF: 0 selenium sulfide 2.5 % Lotion 1 applic TOPICAL UNKNOWN RF: 0 aspirin 81 MG tablet,delayed release (DR/EC) 81 mg PO DAILY RF: 0 dextroamphetamine-amphetamine [Adderall XR] 30 mg capsule,extended release 24hr 30 mg PO DAILY RF: 0 amlodipine 5 mg tablet 5 mg PO DAILY RF: 0 albuterol sulfate [ProAir HFA] 90 mcg/actuation HFA aerosol inhaler 2 puff inhalation Q6H PRNRF: 0 citalopram [Celexa] 40 mg tablet 40 mg PO DAILY RF: 0 Discharge Instructions Additional Instructions: Activity at Home after surgery: 1. Make sure you walk outside at least 4 times per day 2. You should be able to climb a flight of stairs 3. No driving while in pain or taking pain medications 4. No strenuous activity or heavy lifting for 2 weeks (laparoscopic surgery) Diet, Nutrition, & wound healin. Avoid alcohol until after you are recovered from your surgery 2. Make sure to eat plenty of lean protein (meat, fish, eggs, cottage cheese, beans) 3. Eat a variety of fruits and vegetables. Eat plenty of high fiber foods to avoid constipation. 4. Drink plenty of liquids to stay hydrated and avoid constipation Pain Medications: 1. Tylenol 650mg every 6 hours as needed and Ibuprofen 600 mg every 6 hours as needed. You may alternate between the 2 medications every 3 hours 2. If a narcotic has been prescribed take as directed only for breakthrough pain For Constipation: 1. Take Milk of Magnesia or MiraLax as needed for constipation Other: 1. You may shower daily. Do not scrub the incisions 2. Do not soak the incisions for 1 week 3. You may alternate ice and heat as needed for pain and swelling Wound Care: 1. Keep the incisions clean and dry Please call our office if you develop: 1. Fevers >101.5 2. Nausea or Vomiting 3. Worsening pain 4. Redness and thick discharge from the wounds If after hours please call the Hospital at and ask to speak to the on-call surgeon Referrals: Sandy Mariano PA [[facility] TECHNICIAN] - 04/06/21 Activity:: see above Shower/Bathe:: 24 hours Diet:: As Tolerated Discharge Orders Discharge Orders: Discharge Order (Routine); Ordered 03/20/21 Ordered By: Flora Martinez DS: Diagnosis Discharge Diagnosis (1) Reducible right inguinal hernia: Status: Acute (2) S/P repair of hydrocele: Status: Acute
[2021-03-21] MEDS: ceFAZolin 2 GM/50 ML BAG IVPB (08:07)
--- NOTE | 2021-03-21 09:02 | W.ANESNERVE ---
Nerve Block Single Injection Procedure Date and Time Date Performed: 03/21/21 Procedure Start: 08:10 Location Where Procedure Performed Procedure Location: Operating Room Procedure Stop: 08:30 Reason Performed: Postoperative Analgesia Requesting Provider: keyla Requesting Provider (not listed above): keyla Timeout Performed Timeout Performed: Yes Monitoring Used ECG, Blood Pressure, SpO2 and ETCO2 Sterility Sterility: Hand Hygiene, Surgical Cap, Surgical Mask and Sterile Gloves Sedation Given During Procedure Sedation Given (Indicate Dose Given): No Sedation given Patient Mental Status Patient Mental Status: Performed under general anesthesia Nerve Block 1st Nerve Block: Laterality: Bilateral Block Type: TAP Bilateral Needle / Catheter Used: 120mm SonoPlex II Local Anesthetic Bolus (Indicate Dose Given): Injected in 3-5ml increments after negative blood aspiration, Half of Total block solution given into each side, Bupivacaine 0.25% Dose:: 30 and Exparel Dose:: 10 Additives (Indicate Dose Given): None Ultrasound: Sterile probe cover and gel used Ultrasound Image Saved?: Yes Nerve Stimulator: Not Used Paresthesia: None Procedure Tolerated: No Complications Procedure Outcome: Successful Performed By: Stephen Mcnair
[2021-03-21] MEDS: Bupivacaine LIPOSOME/PF 133 MG/10 ML VIAL IJ (10:15)
[2021-03-21] MEDS: Bupivacaine 0.25% Pres-Free 30 ML VIAL (10:15)
--- NOTE | 2021-03-21 10:47 | W.PM.DSUDISC ---
Discharge Plan Disposition Patient Disposition: HOME Condition: Good Discharge Details Reason For Visit: bilateral inguinal hernia repair with mesh Attending Provider: Flora Martinez Primary Care Provider: Deepthi Jimenez Home Meds and New Rx's Prescriptions: New metaxalone [Skelaxin] 800 mg tablet 800 mg PO TID PRNQty: 30 RF: 0 ibuprofen 600 mg tablet 600 mg PO Q6H PRNQty: 90 RF: 3 Continued ketoconazole 2 % Shampoo 1 applic TOPICAL PER PROTOCOL RF: 0 omeprazole 40 mg Capsule,Delayed Release(Dr/Ec) 40 mg PO DAILY RF: 0 vardenafil [Levitra] 20 mg Tablet 20 mg PO DAILY PRNRF: 0 selenium sulfide 2.5 % Lotion 1 applic TOPICAL UNKNOWN RF: 0 aspirin 81 MG tablet,delayed release (DR/EC) 81 mg PO DAILY RF: 0 dextroamphetamine-amphetamine [Adderall XR] 30 mg capsule,extended release 24hr 30 mg PO DAILY RF: 0 amlodipine 5 mg tablet 5 mg PO DAILY RF: 0 albuterol sulfate [ProAir HFA] 90 mcg/actuation HFA aerosol inhaler 2 puff inhalation Q6H PRNRF: 0 citalopram [Celexa] 40 mg tablet 40 mg PO DAILY RF: 0 Discharge Instructions Additional Instructions: HERNIA REPAIR ? POSTOPERATIVE INSTRUCTIONS ? ACTIVITY: The day of surgery should be spent resting. However, you can be up for short periods of time, I.E., going to the bathroom or kitchen. Avoid lifting or straining. On the day following surgery, you can be up and about as desired. ? LIFTING: Restrict your lifting to no more than five (5) pounds for the first week following surgery. For the second week after surgery, don?t lift more than ten pounds. We will decide when you are done with restrictions and when you can return to work, at your follow-up appointment. No sexual activity for two weeks. ? DIET: There are no dietary restrictions following surgery. However, you may want to start with small amounts of liquids to avoid nausea the day of surgery. ? INCISION CARE: You will notice purple skin glue closing the incision. Do not peel this off- it will wear off on its own. After 24 hours you may shower. The dressing may be replaced for comfort, but is not necessary. An ice bag may be applied to the incision for 72 hours following surgery. You May notice some swelling and discomfort in the testicles- this is normal. Use the scrotal support/tight shorts to provide compression. ? SIGNS OF INFECTION: It is not unusual to have some black and blue discoloration of the skin around the incision, but also scrotum and penis. It will slowly disappear. If you have any increased redness, drainage, fever (above 100 degrees), please contact your doctor for an examination. ? DISCOMFORT: You may expect to have some mild discomfort at the incision sight. If severe pain develops you should contact your doctor for further instructions. ? URINATION: Patients who have surgery occasionally have problems urinating. If you experience problems and are not able to urinate within 6 hours following your surgery, please call your doctor immediately or go to your nearest Emergency Room for evaluation. ? DRIVING: NO driving for three (3) days after surgery, or if you are still taking narcotic pain medication. ? MEDICATIONS: Alternate Tylenol 1000mg by mouth every 6 hours and Ibuprofen 600mg every 6 hours. Make sure you take ibuprofen with food and not on an empty stomach. Take the Tylenol and ibuprofen continuously for the first 72hrs- not just when you have pain. Use the skelaxin for severe muscle spasms and pain >7. Use ICE! Twenty minutes on, and then off, continuously for the first 72hours. Make sure you are moving your bowels daily. If not, take Miralax, milk of magnesia or magnesium citrate. Anesthesia makes you very constipated. Take a dose of milk of magnesia the morning after surgery. ? REPORT: Unusual swelling, severe pain, unresolved nausea, signs of infection, or difficulty in urination to your surgeon. Follow up in clinic with Sri SCHNEIDER 04/06 @ 8:30am Referrals: Sandy Mariano PA [[facility] GR[facility]ER] - 04/06/21 Activity:: see above Shower/Bathe:: 24 hours Diet:: As Tolerated Discharge Orders Discharge Orders: Discharge Order (Routine); Ordered 03/20/21 Ordered By: Flora Martinez DS: Diagnosis Discharge Diagnosis (1) Reducible right inguinal hernia: Status: Acute (2) S/P repair of hydrocele: Status: Acute
--- NOTE | 2021-03-21 11:20 | W.ANESPOSTOP ---
Postoperative Evaluation Date, Time and Location Date Performed: 03/21/21 Time Performed: 11:20 Patient Location: Day Surgery Unit Vital Signs Most Recent Imported Vital Signs: Most Recent Vital Signs Temp Pulse Resp BP Pulse Ox 36.3 C L 67 16 121/86 96 03/21/21 11:15 03/21/21 11:15 03/21/21 11:15 03/21/21 11:15 03/21/21 11:15 Pain Score Most Recent Pain Score: Most Recent Pain Score Pain Level 0 03/21/21 10:58 Assessment Mental Status: Awake (Alert & Oriented to Patient Baseline) Airway and Respiratory Function: Patent airway with normal (patient baseline) respiratory exam Cardiovascular Function: Hemodynamically Stable Hydration Status: Adequately Hydrated Nausea & Vomiting: No Nausea or Vomiting Pain: Pt. Denies Any Pain Peripheral Nerve Block: Regional nerve block not resolved at time of post operative discharge
== END 2021-03-21 12:10 | disposition home or self-care (01) ==
PROVIDERS: PCP Family Medicine; Visit Provider Surgery
PROC: (CPT 49650; principal; 2021-03-21 07:45)
DX: K40.20 Bilateral inguinal hernia, without obstruction or gangrene, not specified as recurrent (principal); D17.6 Benign lipomatous neoplasm of spermatic cord; G89.18 Other acute postprocedural pain; Z98.890 Other specified postprocedural states; K21.9 Gastro-esophageal reflux disease without esophagitis; I10 Essential (primary) hypertension
CPT/HCPCS: 49650; 76942; C1781; J0690; J1100; J1885; J2250; J2405; J2704; J3010

== ENCOUNTER 2021-04-26 11:09 | Outpatient (CLI) | payer OTHER, SELFPAY ==
--- NOTE | 2021-04-26 13:33 | DI.RAD_ITS ---
Exam(s) XR FOOT LT COMPLETE EXAM: XR FOOT LT COMPLETE CLINICAL HISTORY: STUBBED TOE, PAIN, M79.672. TECHNIQUE: 2D digital imaging was performed. COMPARISON: No exams were available for comparison FINDINGS: BONES: There is a minimally displaced fracture at the proximal 3rd of the proximal phalanx of the 5th toe. There is no separation at the articular surface. No additional fractures. No bony destructiv e lesion is seen. JOINTS: No dislocation present. SOFT TISSUE: Normal. IMPRESSION: Fracture of the proximal phalanx of the 5th toe. DATA REPOSITORY: RADIATION DOSE DELIVERED:
== END 2021-04-26 11:29 ==
PROVIDERS: PCP Family Medicine; Visit Provider Family Medicine
DX: S92.512A Displaced fracture of proximal phalanx of left lesser toe(s), initial encounter for closed fracture (principal); W22.8XXA Striking against or struck by other objects, initial encounter; Y99.8 Other external cause status
CPT/HCPCS: 73630

== ENCOUNTER 2021-04-26 20:47 | Outpatient (REF) | payer OTHER, SELFPAY ==
[2021-04-26 21:22] LABS: BUN 6 mg/dL (7-18); CREATININE 0.7 mg/dL (0.70-1.30); Calcium 8.9 mg/dL (8.5-10.1); Chloride 106 mmol/L (98-107); Glucose 83 mg/dL (74-106); Potassium 4.3 mmol/L (3.5-5.1); Sodium 141 mmol/L (136-145)
[2021-04-27 17:33] LABS: PSA, Screening 1.8 ng/mL (0.0-3.5)
[2021-04-28 09:25] LABS: HIV-1/2 Ag & Ab Screen Negative (Negative)
[2021-04-28 09:40] LABS: Hepatitis C Ab w Rflx HCV PCR Negative (Negative)
== END 2021-04-26 20:48 | disposition home or self-care (01) ==
LOC: NCHCN 20:47
PROVIDERS: PCP Family Medicine; Visit Provider Family Medicine
DX: I10 Essential (primary) hypertension (principal); F10.10 Alcohol abuse, uncomplicated; N40.1 Benign prostatic hyperplasia with lower urinary tract symptoms; Z00.00 Encounter for general adult medical examination without abnormal findings; Z12.5 Encounter for screening for malignant neoplasm of prostate; Z11.4 Encounter for screening for human immunodeficiency virus [HIV]
CPT/HCPCS: 80048; 84153; 86803; 87389

== ENCOUNTER 2021-12-26 12:39 | Outpatient (REF) | payer OTHER, SELFPAY | END 2021-12-26 12:40 | disposition home or self-care (01) | LOC: LBN 12:39 | PROVIDERS: PCP Family Medicine; Visit Provider Nurse Practitioner Gerontology | DX: N40.1 Benign prostatic hyperplasia with lower urinary tract symptoms (principal); Z12.5 Encounter for screening for malignant neoplasm of prostate | CPT/HCPCS: 84153 ==

== ENCOUNTER 2022-01-17 09:19 | Outpatient (REF) | payer OTHER, SELFPAY ==
[2022-01-17 15:28] LABS: Hemoglobin A1C 4.9 % (<5.7)
[2022-01-17 15:46] LABS: Anion Gap 7.1 mmol/L (3-11); BUN 10 mg/dL (7-18); CO2 31.9 mmol/L (21.0-32.0); CREATININE 0.9 mg/dL (0.70-1.30); Calcium 9.2 mg/dL (8.5-10.1); Chloride 103 mmol/L (98-107); Glucose 112 mg/dL (74-106); Potassium 4.6 mmol/L (3.5-5.1); Sodium 142 mmol/L (136-145); TSH (W/Ref FT4) 1.41 uIU/mL (0.36-3.74)
== END 2022-01-17 09:20 | disposition home or self-care (01) ==
LOC: NCHCN 09:19
PROVIDERS: PCP Family Medicine; Visit Provider Family Medicine
DX: I10 Essential (primary) hypertension (principal); R53.83 Other fatigue; N40.1 Benign prostatic hyperplasia with lower urinary tract symptoms; Z13.1 Encounter for screening for diabetes mellitus
CPT/HCPCS: 80048; 83036; 84443

== ENCOUNTER 2023-07-09 15:23 | Outpatient (CLI) | payer OTHER, SELFPAY ==
--- NOTE | 2023-07-09 11:28 | DI.RAD_ITS ---
Exam(s) XR ANKLE RT COMPLETE EXAM: XR ANKLE RT COMPLETE CLINICAL HISTORY: F/U FRACTURE. TECHNIQUE: 2D digital imaging was performed. COMPARISON: No exams were available for comparison FINDINGS: There is soft tissue swelling laterally. There is no evidence of fracture or widening of the ankle m ortise. Talar dome unremarkable. No degenerative changes. No pes planus. IMPRESSION: Lateral soft tissue swelling. No fractures evident. DATA REPOSITORY: RADIATION DOSE DELIVERED:
== END 2023-07-09 15:24 | disposition home or self-care (01) ==
LOC: DIORS 15:23
PROVIDERS: PCP Family Medicine; Visit Provider Student in an Organized Health Care Education/Training Program
DX: M25.571 Pain in right ankle and joints of right foot (principal)
CPT/HCPCS: 73610

== ENCOUNTER 2023-11-07 07:47 | Day surgery (SDC) | payer OTHER, SELFPAY ==
--- NOTE | 2023-11-06 22:20 | W.PM.DSUDISC ---
Date of service: 11/07/23 Time of Service: 10:22 Discharge Plan Disposition Patient Disposition: Home Condition: Good Discharge Details Reason For Visit: Screening colonoscopy Attending Provider: Jose Vo Primary Care Provider: Deepthi Jimenez Home Meds and New Rx's Prescriptions: Continued ketoconazole 2 % Shampoo 1 applic TOPICAL PER PROTOCOL omeprazole 40 mg Capsule,Delayed Release(Dr/Ec) 40 mg PO DAILY selenium sulfide 2.5 % Lotion 1 applic TOPICAL UNKNOWN Saccharomyces boulardii [Digest Probiotic (S.boulardii)] 250 mg capsule 250 mg PO BID amlodipine 5 mg tablet 5 mg PO DAILY fluticasone propion-salmeterol [Advair HFA] 230-21 mcg/actuation HFA aerosol inhaler 2 puff inhalation Q12H tamsulosin [Flomax] 0.4 mg capsule 0.8 mg PO DAILY levomefolate calcium [L-Methylfolate] 15 mg tablet 15 mg PO DAILY tadalafil [Cialis] 10 mg tablet 10 mg PO DAILY PRN (Reason: sexual activity) Qty: 90 0RF Rx Instructions: administer approximately 30min before sexual activity; do not use more than 1 dose per 24hrs dextroamphetamine-amphetamine [Adderall XR] 15 mg capsule,extended release 24hr 15 mg PO DAILY fluticasone propionate [Flonase Allergy Relief] 50 mcg/actuation spray,suspension 2 spray intranasal DAILY Rx Instructions: administer into each nostril propranolol 10 mg tablet 10 mg PO BID Rx Instructions: May take twice a day as needed for tremor Nizoral A-D 1 % shampoo 1 applic topical Q3D Discontinued polyethylene glycol 3350 17 gram/dose powder 238 g PO ONCE Qty: 238 0RF Rx Instructions: take per colonoscopy instructions bisacodyl [Dulcolax (bisacodyl)] 5 mg tablet,delayed release (DR/EC) 5 mg PO ONCE Qty: 4 0RF Rx Instructions: take per colonoscopy instructions Discharge Instructions Instructions: Diverticulosis (GEN), Colorectal Polyps (GEN), Diverticulosis Diet (GEN) Additional Instructions: German, we were able to complete your colonoscopy today without any issues. I did find 1 polyp, which was quite small. I removed it completely. I will have this sent off for the pathologist to review, once I know the nature of the polyp, I will be in touch with my recommendations for your next colonoscopy. Incidentally, he also had some diverticulosis. I have attached a little bit of information here regarding both colorectal polyps as well as diverticulosis. If you have any questions in the meantime, please do not hesitate to call at any point. 1. If tolerated, consume a soft, low fiber diet for 1-2 days. 2[address] Do not drive, drink alcohol, operate machinery, make critical decisions, or do activities that require coordination or balance for 24 hours. 3. Because air was put into your colon during the procedure, expelling air from your rectum (passing gas or farting) is normal. 4. You may not have a bowel movement for 1-3 days because of the colonoscopy prep. This is normal. 5. Go directly to the emergency room if you notice any of the following: Develop chills (warm to touch), or if you have a thermometer and your temperature is above 101 Difficulty breathing or difficultly swallowing Persistent vomiting Severe abdominal pain, other than gas cramps Severe chest pain Black, tarry stools Any bleeding ? exceeding one tablespoon 6. Call your physician if the site where your intravenous was started becomes red, swollen, painful, and warm to touch. 7. Your physician has reviewed your pre-procedure medications. Please continue to take those medications as previously ordered. You will be given specific information/education regarding any changes to your medications before leaving. Activity:: Activity as Tolerated Diet:: As Tolerated Discharge Orders Discharge Orders: Discharge Order (Routine); Ordered 11/06/23 Ordered By: Jose Vo DS: Diagnosis Discharge Diagnosis (1) Encounter for screening colonoscopy: Status: Acute Asessment and Plan: Follow-up on polyp results
--- NOTE | 2023-11-06 22:21 | W.COLOREPORT ---
Date of service: 11/07/23 Time of Service: : Colonoscopy Report Date of procedure: 11/07/23 Pre-op diagnosis general: Screening colonoscopy Post-op diagnosis procedure note: other (Diverticulosis, colon polyp) Procedure: Colonoscopy with polypectomy Surgeon: Jose Vo Anesthesia Type: General:No Airway Estimated blood loss (mL): 5 Pathology: other (0.25 cm polyp at 90 cm from the anus) Complications: None Disposition: same day Indications: German is a 52-year-old male with a family history of colon cancer, and a personal history of adenomatous polyps. He needs his next screening colonoscopy Prep: Miralax/Dulcolax Procedure Start Time: 09:57 Procedure End Time: 10:16 Retraction Time: 7 Findings: Sigmoid diverticulosis, 0.25 cm colon polyp at 90 cm Procedure Description: After the induction of anesthesia, and with the patient in left lateral decubitus position, I began by performing an external anorectal exam.? Perineum and skin were normal, as was the anal verge.? There was no evidence of external hemorrhoids.? Next, I performed a digital rectal exam.? I did not appreciate any abnormal findings.? Next, I advanced a colonoscope into the rectal vault.? I performed retroflexion.? This was normal.? Using insufflation, I then advanced the colonoscope beyond the rectal folds and into the sigmoid colon before advancing towards the cecum.? There is sigmoid diverticulosis.? The scope was noted to be in the cecum by identification of the ileocecal valve and appendiceal orifice.? I then began withdrawing the colonoscope using repeated irrigation as necessary for full evaluation of the colonic mucosa. Around 90 cm from the anal verge I identified a 0.25 cm polyp. ?It appeared pedunculated in character. ?I was able to remove this with a cold forcep polypectomy. ?I examined the site, and there was minimal bleeding. ?Once this was completed, I continued to withdraw the scope and examine the remainder of the colonic mucosa.?Once the scope was withdrawn to the level of the rectum, great care was taken to examine portions of the rectal folds.? Finally, the scope was withdrawn and the patient was brought to the same-day surgery recovery unit as the anesthetic wore off. ?The findings and instructions were shared with the patient prior to discharge. Newport Bowel Prep Newport Bowel Prep Right Colon: 3 Left Colon: 3 Transverse Colon: 3 Total Score: 9
[2023-11-07 08:14] VITALS: BP 136/89; PULSE 69; RESP 16; TEMP 36.4; O2SAT 95
[2023-11-07] MEDS: Lactated Ringers 1,000 ML 80 ML IV (08:17)
[2023-11-07 09:45] VITALS: BMI 28.3
--- NOTE | 2023-11-07 09:45 | W.ANESPRE ---
General Info Date of Service Date Performed: 11/07/23 Height: 6 ft 1 in Weight: 97.2 kg Body Mass Index (BMI): 28.3 Surgical Procedure: Operation Date: 11/07/23 09:20 Proposed Procedure Side Surgeon toshia Vo MD Meds Allergies and Home Medications Allergies Allergy/AdvReac Type Severity Reaction Status Date / Time No Known Allergies Allergy Verified 11/07/23 07:54 Home Medication Medication Instructions Recorded amlodipine 5 mg tablet 5 mg PO DAILY 07/14/20 ketoconazole 2 % shampoo 1 applic topical PER PROTOCOL 10/07/20 omeprazole 40 mg capsule,delayed 40 mg PO DAILY 10/07/20 release selenium sulfide 2.5 % lotion 1 applic topical UNKNOWN 10/07/20 fluticasone propionate 230 2 puff inhalation Q12H 11/15/21 mcg-salmeterol 21 mcg/actuation HFA inhaler (Advair HFA) levomefolate calcium 15 mg tablet 15 mg PO DAILY 11/15/21 (L-Methylfolate) tamsulosin 0.4 mg capsule (Flomax) 0.8 mg PO DAILY 11/15/21 tadalafil 10 mg tablet (Cialis) 10 mg PO DAILY PRN sexual activity 01/01/23 #90 tabs dextroamphetamine-amphetamine ER 15 mg PO DAILY 10/09/23 15 mg 24hr capsule,extend release (Adderall XR) fluticasone propionate 50 2 spray intranasal DAILY 10/09/23 mcg/actuation nasal spray,suspension (Flonase Allergy Relief) ketoconazole 1 % shampoo (Nizoral 1 applic topical Q3D 10/09/23 A-D) propranolol 10 mg tablet 10 mg PO BID 10/09/23 Saccharomyces boulardii 250 mg 250 mg PO BID 10/30/23 capsule (Digest Probiotic (S.boulardii)) Current Visit Medications: Current Medications Generic Name Dose Route Start Last Admin Trade Name Freq PRN Reason Stop Dose Admin Hyoscyamine Sulfate 0.125 mg 11/06/23 22:22 Hyoscyamine 0.125 Mg Sl/Oral/Chew SL 12/06/23 22:21 DIRECTED PRN Ringer's Solution 1,000 mls @ 80 mls/hr 11/07/23 06:00 11/07/23 08:17 IV 11/07/23 23:59 80 mls/hr INFUSION LION Administration IV Miscellaneous Supplies 1 each 11/07/23 06:00 Iv Access IV 11/07/23 23:59 DIRECTED LION Ondansetron HCl 4 mg 11/06/23 22:22 Ondansetron 4 Mg/2 Ml Vial IVP 12/06/23 22:21 Q4H PRN PRN Nausea / Vomiting Sodium Chloride 0 ml 11/07/23 06:00 Normal Saline Flush 10 Ml Syr IV 11/07/23 23:59 PRN PRN Sodium Chloride 0 ml 11/07/23 06:00 Normal Saline 10 Ml Vial IJ 11/07/23 23:59 DIRECTED PRN Sterile Water 0 ml 11/07/23 06:00 Water,Injection,Sterile 10 Ml Vial IJ 11/07/23 23:59 DIRECTED PRN PFSH Active Problems Active Problems: Problem Status Onset Code Encounter for screening colonoscopy Z12.11 Benign essential tremor G25.0 Right ankle sprain ~01/2023 S93.401A Fracture of proximal phalanx of toe of left foot 04/16/21 S92.912A Hemorrhoids without complication K64.9 Family history of cancer of GI tract Z80.0 Cervical radiculitis M54.12 Reducible right inguinal hernia K40.90 S/P repair of hydrocele Z98.890, Z87.438 Diverticula of colon K57.30 Adenomatous polyps D36.9 Medical History Medical History BPH loc w urin obs/LUTS Inguinal hernia Tubulovillous adenoma (~08/2020) Tubular adenoma (~08/2020) History of palpitations Pt. states in his 20's had palpatations and had it worked up and nothing ever came of it Seborrheic dermatitis of scalp Obesity Congenital duplication cyst of esophagus Erectile dysfunction Back pain Cervical radiculopathy Anxiety Attention deficit disorder Alcohol abuse Depression Family history of colon cancer per referral note, both sides of family, 2 grandparents and perhaps some aunts, maternal grandfather was young, under the age of 50 at time of diagnosis Adenomatous colon polyp (~2017) Asthma Hypertension Allergic rhinitis GERD (gastroesophageal reflux disease) Chronic low back pain Esophageal duplication cyst Surgical History Surgical History S/P laparoscopic hernia repair (~03/21/21) History of hydrocelectomy History of colonoscopy (~09/01/20) Incision & Drainage, Abscess or Hematoma thrombosed hemorrhoid EGD - MAC (07/30/17) EGD - IV Sedation Colonoscopy - MAC (02/08/17) Tobacco Smoking/Tobacco Use Status: Never Alcohol Alcohol Intake: former Year quit: 2019 Details: acamprostate Substance Use Substance use: Occasionally Substance use type: marijuana Vital Signs and Lab Results Vital Signs Most Recent Vital Signs in EMR: Most Recent Vital Signs Temp Pulse Resp BP Pulse Ox 36.4 C L 69 16 136/89 95 11/07/23 08:14 11/07/23 08:14 11/07/23 08:14 11/07/23 08:14 11/07/23 08:14 Lab Results Blood Type / Crossmatch: No Data to Display Complete Blood Count: No Data to Display Complete Metabolic Panel: No Data to Display Liver Function Panel: No Data to Display Coagulation Panel: No Data to Display Cardiac Panel: No Data to Display Arterial Blood Gas: No Data to Display Venous Blood Gas: No Data to Display Pancreas Panel: No Data to Display Thyroid Panel: No Data to Display Infectious Disease: No Data to Display Blood Cultures: No Data to Display Toxicology Panel: No Data to Display Anesthesia Assessment and Plan Anesthesia History Personal History: No History of Anesthesia Complications Family History: No Family History of Anesthesia Complications Exercise Tolerance Exercise Tolerance: Metabolic Equivalents>4 Pertinent Negatives Pertinent Negatives: No Symptoms of GERD Cardiac & Pulmonary Exam Cardiac Exam: Normal S1/S2 Heart Sounds Pulmonary Exam: Clear Bilateral Breath Sounds Implantable Cardiac Device Does patient have a Pacemaker or an ICD?: No Airway Exam Known Difficult Airway: No Mallampati Class: 1 Mouth Opening: Normal (> 3cm) Thyromental Distance: Greater than 3 cm Neck Range of Motion: Full ROM Neck Circumference: Normal Teeth Condition: Normal Dentition ASA Classification ASA Score: ASA 2 Emergency Case?: No NPO Status NPO Status: NPO Clears >2 hours, Solids >8 hours Anesthesia Plan Resuscitation Status: Full Code Anesthesia Technique: General Anesthesia Airway Planned: Natural Airway Monitors Used: Standard Monitors
--- NOTE | 2023-11-07 10:12 | BOWEL_PTH ---
PATIENT: Hai Chiu LOC: [facility] U#:[id number] AGE/SX: 52/M ROOM: RE11/07/[address]: Jose Vo MD : 1970 BED: DIS: 11/07/2023 SPEC #: [id number] RECD: 11/07/23 12:31 STATUS: BRENDA REQ #: [id number] EUGENE: 11/07/23 10:[address]: Jose Vo DEPT: Surgical Specimen RECD BY: Keila Greer ENTERED: 11/07/23 12:31 SP TYPE: Bowel OTHR DR: Deepthi Jimenez Tissues: 1 - BIOPSY BOWEL Procedures: GROSS AND MICRO LEVEL 4 Comments: [id number]
[2023-11-07 10:22] VITALS: BP 114/79; PULSE 73; RESP 20; TEMP 36.5; O2SAT 97
--- NOTE | 2023-11-07 10:29 | W.ANESPOSTOP ---
Postoperative Evaluation Date, Time and Location Date Performed: 11/07/23 Time Performed: 10:29 Patient Location: Day Surgery Unit Vital Signs Most Recent Imported Vital Signs: Most Recent Vital Signs Temp Pulse Resp BP Pulse Ox 36.5 C 73 20 114/79 97 11/07/23 10:22 11/07/23 10:22 11/07/23 10:22 11/07/23 10:11/07/23 10:22 Pain Score Most Recent Pain Score: Most Recent Pain Score Pain Level 0 11/07/23 10:22 Assessment Mental Status: Awake (Alert & Oriented to Patient Baseline) Airway and Respiratory Function: Patent airway with normal (patient baseline) respiratory exam Cardiovascular Function: Hemodynamically Stable Hydration Status: Adequately Hydrated Nausea & Vomiting: No Nausea or Vomiting Pain: Pt. Denies Any Pain Peripheral Nerve Block: Patient did not receive a nerve block
[2023-11-07 10:52] VITALS: BP 119/83; PULSE 66; RESP 17; TEMP 36.9; O2SAT 96
== END 2023-11-07 11:04 | disposition home or self-care (01) ==
LOC: SUR 07:47
PROVIDERS: PCP Family Medicine; Visit Provider Surgery
PROC: 0DJD8ZZ Inspection of Lower Intestinal Tract, Via Natural or Artificial Opening Endoscopic (ICD-10-PCS; CPT 45378; principal; 2023-11-07 09:15)
DX: Z12.11 Encounter for screening for malignant neoplasm of colon (principal); D12.3 Benign neoplasm of transverse colon; K57.30 Diverticulosis of large intestine without perforation or abscess without bleeding; Z80.0 Family history of malignant neoplasm of digestive organs; Z86.010 Personal history of colon polyps
CPT/HCPCS: 45380; 88305; J2001; J2704

== ENCOUNTER 2023-12-30 17:39 | Outpatient (CLI) | payer OTHER, SELFPAY ==
[2023-12-30 19:35] LABS: PSA, Screening 1.3 ng/mL (<=3.5)
== END 2023-12-30 17:40 | disposition home or self-care (01) ==
LOC: LBO 17:43
PROVIDERS: PCP Family Medicine; Visit Provider Nurse Practitioner Gerontology
DX: R39.89 Other symptoms and signs involving the genitourinary system (principal); Z12.5 Encounter for screening for malignant neoplasm of prostate
CPT/HCPCS: 36415; 84153

== ENCOUNTER 2024-03-04 16:34 | Outpatient (REF) | payer OTHER, SELFPAY ==
[2024-03-04 19:34] LABS: ALT 27 U/L (16-63); AST 26 U/L (15-37); Albumin 4.2 g/dL (3.4-5.0); Alkaline Phosphatase 46 U/L (46-116); Anion Gap 4.6 mmol/L (3-11); BUN 9 mg/dL (7-18); Bilirubin, Total 0.57 mg/dL (0.2-1.0); CO2 33.4 mmol/L (21.0-32.0); CREATININE 0.8 mg/dL (0.70-1.30); Calcium 9.8 mg/dL (8.5-10.1); Calculated LDL 149 mg/dL (<100); Chloride 104 mmol/L (98-107); Cholesterol 272 mg/dL (<200); Estimated GFR 105.82 (mL/min/1.73m2); Glucose 98 mg/dL (74-106); HDL Cholesterol 108 mg/dL (40-60); Potassium 4.9 mmol/L (3.5-5.1); Sodium 142 mmol/L (136-145); Total Protein 7.3 g/dL (6.4-8.2); Triglyceride 79 mg/dL (<150)
[2024-03-04 19:38] LABS: Hemoglobin A1C 4.9 % (<5.7)
== END 2024-03-04 16:35 | disposition home or self-care (01) ==
LOC: NCHCN 16:34
PROVIDERS: PCP Family Medicine; Visit Provider Family Medicine
DX: I10 Essential (primary) hypertension (principal); Z13.1 Encounter for screening for diabetes mellitus; Z13.220 Encounter for screening for lipoid disorders
CPT/HCPCS: 80053; 80061; 83036

== ENCOUNTER 2025-03-08 15:23 | Outpatient (REF) | payer OTHER, SELFPAY ==
[2025-03-08 16:03] LABS: Anion Gap 12.3 mmol/L (3-11); BUN 9 mg/dL (7-18); CO2 25.7 mmol/L (21.0-32.0); CREATININE 0.9 mg/dL (0.70-1.30); Calcium 8.9 mg/dL (8.5-10.1); Chloride 106 mmol/L (98-107); Estimated GFR 101.49 (mL/min/1.73m2); Glucose 89 mg/dL (74-106); Potassium 4.2 mmol/L (3.5-5.1); Sodium 144 mmol/L (136-145)
[2025-03-09 09:27] LABS: PSA, Screening 1.1 ng/mL (<=3.5)
== END 2025-03-08 15:24 | disposition home or self-care (01) ==
LOC: NCHCN 15:23
PROVIDERS: PCP Family Medicine; Visit Provider Family Medicine
DX: I10 Essential (primary) hypertension (principal); Z12.5 Encounter for screening for malignant neoplasm of prostate
CPT/HCPCS: 80048; 84153

== ENCOUNTER 2025-08-02 15:23 | Outpatient (REF) | payer OTHER, SELFPAY | END 2025-08-02 15:24 | disposition home or self-care (01) | LOC: NCHCN 15:23 | PROVIDERS: PCP Family Medicine; Visit Provider Family Medicine | DX: I10 Essential (primary) hypertension (principal) | CPT/HCPCS: 82043; 82570 ==